=== PATIENT | male | born 1955 | race American Indian/Alaskan Native ===

== ENCOUNTER 2022-07-21 01:02 | Emergency (ER) | payer OTHER ==
[2022-07-21] MEDS ORDERED: PANTOPRAZOLE 40 MG INJ IV ONE (03:07)
[2022-07-21] MEDS ORDERED: SODIUM CHLORIDE 0.9% 1000 ML 1,000 ML IV ONE (03:07)
--- NOTE | 2022-07-21 04:09 | XRay Report ---
CHEST 1 VIEW INDICATION / CLINICAL INFORMATION: GI Bleed. FINDINGS: SUPPORT DEVICES: None. HEART / MEDIASTINUM: No significant abnormality. LUNGS / PLEURA: No significant pulmonary or pleural abnormality. No pneumothorax. ADDITIONAL FINDINGS: No significant additional findings. IMPRESSION: 1. No acute findings. Signer Name: Tulio Greer MD Signed: 07/21/2022 4:04 AM Workstation Name: [id number]
[2022-07-21 04:10] LABS: Basophils % (Auto) 0.3 % (0.0-1.8); Eosinophils % (Auto) 0.1 % (0.0-4.3); Hematocrit 40.3 % (35.5-45.6); Hemoglobin 13.6 gm/dl (11.8-15.2); Lymphocytes # (Auto) 1.6 K/mm3 (1.2-5.4); Lymphocytes % (Auto) 10.6 % (13.4-35.0); Mean Corpuscular HGB Conc 34 % (32-34); Mean Corpuscular Volume 87 fl (84-94); Monocytes # (Auto) 0.8 K/mm3 (0.0-0.8); Platelet Count 238 K/mm3 (140-440); Red Blood Count 4.63 M/mm3 (3.65-5.03); Red Cell Distribution Width 12.8 % (13.2-15.2)
[2022-07-21 04:19] LABS: INR 0.9 (0.87-1.13)
[2022-07-21 04:29] LABS: Alanine Aminotransferase 23 units/L (7-56); Albumin 3.9 g/dL (3.9-5); BUN/Creatinine Ratio 21; Blood Urea Nitrogen 17 mg/dL (9-20); Calcium 9.5 mg/dL (8.4-10.2); Hemolysis Index 8
--- NOTE | 2022-07-21 05:18 | Emergency Department Report ---
ED General Adult HPI - General Chief complaint: GI Bleed Stated complaint: RECTAL BLEEDING PUI?: No Time Seen by Provider: 07/21/22 03:07 Source: patient, EMS Mode of arrival: Stretcher Limitations: No Limitations - History of Present Illness Initial comments: Inmate. Reporting abdominal pain and bloody stools since yesterday. -: Gradual, days(s) Severity scale (0 -10): 0 Consistency: intermittent Improves with: none Worsens with: none Associated Symptoms: denies: denies other symptoms, confusion, chest pain, cough, shortness of breath, syncope, weakness - Related Data Allergies Allergy/AdvReac Type Severity Reaction Status Date / Time No Known Allergies Allergy Unverified 07/21/22 03:04 ED Review of Systems ROS: Stated complaint: RECTAL BLEEDING Other details as noted in HPI Constitutional: denies: chills, fever Eyes: denies: eye pain, eye discharge, vision change ENT: denies: ear pain, throat pain Respiratory: denies: cough, shortness of breath, wheezing Cardiovascular: denies: chest pain, palpitations Endocrine: no symptoms reported Gastrointestinal: denies: abdominal pain, nausea, diarrhea Genitourinary: denies: urgency, dysuria Musculoskeletal: denies: back pain, joint swelling, arthralgia Skin: denies: rash, lesions Neurological: denies: headache, weakness, paresthesias Psychiatric: denies: anxiety, depression Hematological/Lymphatic: denies: easy bleeding, easy bruising ED Past Medical Hx - Past Medical History Previous Medical History?: Yes Hx Hypertension: Yes Hx Heart Attack/AMI: Yes Hx Diabetes: Yes Hx Asthma: Yes Hx HIV: Yes - Surgical History Past Surgical History?: No - Social History Smoking Status: Never Smoker Substance Use Type: None ED Physical Exam - General Limitations: No Limitations General appearance: alert, in no apparent distress - Head Head exam: Present: atraumatic, normocephalic - Eye Eye exam: Present: normal appearance - ENT ENT exam: Present: mucous membranes moist - Neck Neck exam: Present: normal inspection - Respiratory Respiratory exam: Present: normal lung sounds bilaterally. Absent: respiratory distress - Cardiovascular Cardiovascular Exam: Present: regular rate, normal rhythm. Absent: systolic murmur, diastolic murmur, rubs, gallop - GI/Abdominal GI/Abdominal exam: Present: soft, normal bowel sounds - Rectal Rectal exam: Present: deferred, heme (+) stool, other (no active bleeding ) - Extremities Exam Extremities exam: Present: normal inspection - Back Exam Back exam: Present: normal inspection - Neurological Exam Neurological exam: Present: alert, oriented X3 - Psychiatric Psychiatric exam: Present: normal affect, normal mood - Skin Skin exam: Present: warm, dry, intact, normal color. Absent: rash ED Course Vital Signs 07/21/22 07/21/22 07/21/22 01:02 03:13 03:16 Temperature 98.3 F Pulse Rate 78 86 91 H Respiratory 18 15 18 Rate Blood Pressure 131/105 91/62 O2 Sat by Pulse 99 99 97 Oximetry 07/21/22 07/21/22 07/21/22 03:30 03:39 03:46 Temperature Pulse Rate 91 H 88 Respiratory 17 18 18 Rate Blood Pressure 93/59 88/65 O2 Sat by Pulse 98 Oximetry 07/21/22 07/21/22 07/21/22 04:00 04:16 04:30 Temperature Pulse Rate 85 95 H 87 Respiratory 15 12 17 Rate Blood Pressure 90/69 102/72 105/66 O2 Sat by Pulse Oximetry 07/21/22 07/21/22 04:46 05:00 Temperature Pulse Rate 81 84 Respiratory 15 16 Rate Blood Pressure 102/65 101/60 O2 Sat by Pulse Oximetry ED Medical Decision Making - Lab Data Result diagrams: 07/21/22 03:46 07/21/22 03:46 - EKG Data -: EKG Interpreted by [place] EKG shows normal: sinus rhythm Rate: normal - EKG Data Interpretation: no acute changes - Medical Decision Making work up shwoed stable h.h vss, no active bleeding , started on PPI , spoke with dr dave STEWART ok to d/c back to [facility] with stoppig asprin and starting PPI and follow u with gi Critical care attestation.: If time is entered above; I have spent that time in minutes in the direct care of this critically ill patient, excluding procedure time. ED Disposition Clinical Impression: Hematochezia, Bleeding per rectum Disposition: HOME / SELF CARE / HOMELESS Is pt being admited?: No Does the pt Need Aspirin: No Condition: Stable Instructions: Rectal Bleeding, Gastrointestinal Bleeding Referrals: PARIS WEIR MD [Staff Physician] - 3-5 Days
[2022-07-21 05:22] VITALS: BP 92/65
--- NOTE | 2022-07-22 13:11 | Electrocardiograph Report ---
[facility] Test Date: 2022-07-21 Test Time: 03:11:11 Pat Name: YESI REYES Department: Room: Gender: M [employer] Welder: MALATHI : 1955 Requested By: DARLENE MARTINES Order Number: [id number] Reading MD: Edwina Spence Measurements Intervals [place] Rate: 85 P: 58 LA: 165 QRS: -1 QRSD: 77 T: 33 QT: 376 QTc: 447 Interpretive Statements Sinus rhythm No previous ECG available for comparison Electronically Signed On 07-22-2022 13:10:52 EDT by Edwina Spence
== END 2022-07-21 05:45 | disposition home or self-care (01) ==
LOC: ED 01:02
DX: K92.1 Melena (principal); I10 Essential (primary) hypertension; I21.9 Acute myocardial infarction, unspecified; E11.9 Type 2 diabetes mellitus without complications; J45.909 Unspecified asthma, uncomplicated; Z21 Asymptomatic human immunodeficiency virus [HIV] infection status
CPT/HCPCS: 36415; 71045; 80053; 82140; 83690; 85025; 85610; 93005; 96361; 96374; 99284; C9113; J7030